=== PATIENT | female | born 1975 | race Caucasian/White ===

== ENCOUNTER 2016-09-01 20:04 | Emergency (ER) | payer SELFPAY ==
[~2016-09-01] VITALS: Ht 162.6 cm; Wt 77.1 kg
[2016-09-01 21:25] LABS: BASOPHIL % 0.5 % (0-2); PLATELET COUNT 316 x10^3mcL (130-400); RED CELL DISTRIBUTION WIDTH 13.5 % (11.5-14.5)
[2016-09-01 21:32] LABS: CALCIUM 8.8 mg/dL (8.5-10.1); CARBON DIOXIDE 29.1 mmol/L (21-32); CHLORIDE SERUM 105 mmol/L (98-107); CREATININE SERUM 0.9 mg/dL (0.6-1.0); GFR1 > 60 mL/min; GLUCOSE SERUM 107 mg/dL (74-106); POTASSIUM SERUM 4.4 mmol/L (3.5-5.1); SODIUM SERUM 139 mmol/L (136-145)
[2016-09-01 21:36] LABS: ALKALINE PHOSPHATASE 96 U/L (46-116); ALT/SGPT 22 U/L (14-59); AMYLASE 38 U/L (25-115); AST/SGOT 17 U/L (15-37); BILIRUBIN TOTAL 0.25 mg/dL (0.20-1.00); LIPASE 104 IU/L (73-393); TOTAL PROTEIN, SERUM 7.3 g/dL (6.4-8.2)
[2016-09-01 21:37] LABS: ALBUMIN 3.3 g/dL (3.4-5.0)
[2016-09-02 00:37] VITALS: BP 125/71
== END 2016-09-02 00:37 | disposition home or self-care (01) ==
LOC: ED 20:04 → EDBD 20:04 → ED 09-02 00:37
PROVIDERS: Emergency Medicine
DX: A08.4 Viral intestinal infection, unspecified (principal); K21.9 Gastro-esophageal reflux disease without esophagitis
CPT/HCPCS: 83880; J1885; J2405; J2765; J7030

== ENCOUNTER 2016-12-19 13:57 | Inpatient (IN) | payer MEDICAID ==
[~2016-12-19] VITALS: Ht 157.5 cm; Wt 88.5 kg
[2016-12-19 15:04] LABS: BASOPHIL % 0.4 % (0-2); PLATELET COUNT 308 x10^3mcL (130-400); RED CELL DISTRIBUTION WIDTH 12.9 % (11.5-14.5)
[2016-12-19 15:07] LABS: CALCIUM 8.7 mg/dL (8.5-10.1); CARBON DIOXIDE 24.1 mmol/L (21-32); CHLORIDE SERUM 106 mmol/L (98-107); CREATININE SERUM 0.7 mg/dL (0.6-1.0); GFR1 > 60 mL/min; GLUCOSE SERUM 134 mg/dL (74-106); POTASSIUM SERUM 3.5 mmol/L (3.5-5.1); SODIUM SERUM 141 mmol/L (136-145)
[2016-12-19 15:12] LABS: ALBUMIN 3.4 g/dL (3.4-5.0); ALKALINE PHOSPHATASE 102 U/L (46-116); ALT/SGPT 22 U/L (14-59); AST/SGOT 16 U/L (15-37); BILIRUBIN TOTAL 0.23 mg/dL (0.20-1.00); LIPASE 96 IU/L (73-393); TOTAL PROTEIN, SERUM 7.6 g/dL (6.4-8.2)
[2016-12-19 16:40] LABS: MAGNESIUM 2.1 mg/dL (1.8-2.4); PHOSPHOROUS 2.2 mg/dL (2.5-4.9)
[2016-12-19 16:42] VITALS: BP 142/87
[2016-12-19 16:46] VITALS: BP 142/87
[2016-12-19 16:49] LABS: T3 TOTAL 1.76 ng/mL
[2016-12-19 17:14] VITALS: Ht 157.5 cm; Wt 88.5 kg
[2016-12-19 17:14] LABS: FREE T4 1.3 ng/dL (0.76-1.46); FREE THYROXINE INDEX 4.3 ug/dL (1.4-4.5); T4(THYROXINE) 13.3 ug/dL (4.7-13.3)
[2016-12-19 18:15] LABS: UA SPECIFIC GRAVITY >=1.030 (1.005-1.035); microscopic required? YES; urine erythrocyte 1+ (NEGATIVE)
[2016-12-19 18:29] LABS: AMPHETAMINE QUAL UR NONE DETECTED (NEG <=1000)
[2016-12-19 21:05] VITALS: BP 140/86
[2016-12-20 06:01] VITALS: BP 107/65
[2016-12-20 06:55] LABS: PLATELET COUNT 274 x10^3mcL (130-400); RED CELL DISTRIBUTION WIDTH 13.1 % (11.5-14.5)
[2016-12-20 07:05] LABS: CALCIUM 8.3 mg/dL (8.5-10.1); CARBON DIOXIDE 25.2 mmol/L (21-32); CHLORIDE SERUM 104 mmol/L (98-107); CREATININE SERUM 0.6 mg/dL (0.6-1.0); GFR1 > 60 mL/min; GLUCOSE SERUM 117 mg/dL (74-106); MAGNESIUM 1.9 mg/dL (1.8-2.4); PHOSPHOROUS 3.5 mg/dL (2.5-4.9); POTASSIUM SERUM 3.2 mmol/L (3.5-5.1); SODIUM SERUM 139 mmol/L (136-145)
[2016-12-20 09:01] VITALS: BP 101/61
[2016-12-20 09:45] LABS: BAND NEUTROPHIL 5 % (0-10); BASOPHIL 0 % (0-2); MONOCYTE 2 % (0-7); SEGMENTED NEUTROPHILS 85 % (37-75)
[2016-12-20 09:46] LABS: PLATELET MORPHOLOGY PLATELETS NORMAL
[2016-12-20 12:13] VITALS: BP 99/63
[2016-12-20 16:24] VITALS: BP 111/68
[2016-12-21 05:40] VITALS: BP 105/75
[2016-12-21 06:00] LABS: PLATELET COUNT 240 x10^3mcL (130-400); RED CELL DISTRIBUTION WIDTH 13.2 % (11.5-14.5)
[2016-12-21 06:14] LABS: CALCIUM 8.1 mg/dL (8.5-10.1); CARBON DIOXIDE 26.3 mmol/L (21-32); CHLORIDE SERUM 108 mmol/L (98-107); CREATININE SERUM 0.6 mg/dL (0.6-1.0); GFR1 > 60 mL/min; GLUCOSE SERUM 102 mg/dL (74-106); POTASSIUM SERUM 4.2 mmol/L (3.5-5.1); SODIUM SERUM 139 mmol/L (136-145)
[2016-12-21 06:35] LABS: PHOSPHOROUS 3.5 mg/dL (2.5-4.9)
[2016-12-21 06:42] LABS: BASOPHIL % 0 % (0-2)
[2016-12-21 10:00] VITALS: BP 104/58
[2016-12-21 10:49] VITALS: BP 104/58
[2016-12-21] MEDS ORDERED: BACTRIM DS1 TAB PO ×2 (11:23→11:42)
[2016-12-21] MEDS ORDERED: NORCO1 TA2 PO ×2 (11:24→11:42)
[2016-12-21] MEDS ORDERED: LAC PO ×2 (11:25→11:42)
[2016-12-21 12:44] VITALS: BP 104/58
[2016-12-21 12:45] VITALS: BP 104/58
[2016-12-21] MEDS ORDERED: STOOL SOFTENER100 MG PO (13:52)
[2016-12-21] MEDS ORDERED: CIPRO500 MG PO (14:02)
[2016-12-21] MEDS ORDERED: CYCLOBENZAPRINE5 MG PO (14:38)
== END 2016-12-21 13:35 | disposition home or self-care (01) | DRG 446 ==
LOC: ED 13:57 → DU 15:20
PROVIDERS: Emergency Medicine; Family Medicine; Urology; ADMIT Family Medicine
PROC: 0TC68ZZ Extirpation of Matter from Right Ureter, Via Natural or Artificial Opening Endoscopic (ICD-10-PCS; 2016-12-20)
PROC: 0T768DZ Dilation of Right Ureter with Intraluminal Device, Via Natural or Artificial Opening Endoscopic (ICD-10-PCS; principal; 2016-12-20 18:00)
DX: N13.2 Hydronephrosis with renal and ureteral calculous obstruction (principal); E83.39 Other disorders of phosphorus metabolism; N39.0 Urinary tract infection, site not specified; B96.20 Unspecified Escherichia coli [E. coli] as the cause of diseases classified elsewhere; R31.9 Hematuria, unspecified; E87.6 Hypokalemia; N28.1 Cyst of kidney, acquired; E66.9 Obesity, unspecified; Z68.35 Body mass index [BMI] 35.0-35.9, adult; Z16.24 Resistance to multiple antibiotics
CPT/HCPCS: 82962; 83880; 84439; C1769; C2625; J1885; J2250; J2405; J2543; J2550; J2704; J2800; J3010; J3490; J7030; J7120; Q0092; Q9967